=== PATIENT | female | born 1965 | race Caucasian/White ===

== ENCOUNTER → 2023-01-13 | Outpatient (CLI) | payer MEDICAID, SELFPAY ==
[2023-01-13 13:53] LABS: Lipase 29 U/L (13-75)
== END | disposition home or self-care (01) ==
LOC: LABSPEC 13:16
PROVIDERS: Referring Provider Nurse Practitioner Family; Visit Provider Nurse Practitioner Family
DX: R10.30 Lower abdominal pain, unspecified (principal)
CPT/HCPCS: 83690